=== PATIENT | female | born 1990 | race Caucasian/White ===

== ENCOUNTER 2022-02-28 12:03 | Outpatient (CLI) | payer BC, SELFPAY | END 2022-02-28 12:04 | disposition home or self-care (01) | LOC: US 12:03 | PROVIDERS: Visit Provider Pediatrics Neonatal-Perinatal Medicine | DX: Z34.92 Encounter for supervision of normal pregnancy, unspecified, second trimester (principal); Z3A.21 21 weeks gestation of pregnancy | CPT/HCPCS: 76811 ==

== ENCOUNTER 2022-04-20 08:34 | Outpatient (CLI) | payer BC, SELFPAY ==
[2022-04-22 09:59] LABS: Rapid Plasma Reagin (RPR) Non Reactive (Non Reactive)
== END 2022-04-20 08:35 | disposition home or self-care (01) ==
LOC: NFLDREF 08:35
PROVIDERS: Visit Provider Advanced Practice Midwife
DX: Z34.93 Encounter for supervision of normal pregnancy, unspecified, third trimester (principal); Z3A.28 28 weeks gestation of pregnancy
CPT/HCPCS: 86592

== ENCOUNTER 2022-05-18 07:57 | Outpatient (CLI) | payer BC, SELFPAY ==
--- NOTE | 2022-05-18 08:15 | CRLHL7_ITS ---
For Patients: As a result of the Century Cures Act, medical imaging exams and procedure reports are released immediately into your electronic medical record. You may view this report before your referring provider. If you have questions, please contact your health care provider. INDICATION: HX COVID IN , GROWTH COMPARISON: 12/08/2021 TECHNIQUE: Real time herrera scale imaging of the fetus was performed as well as color Doppler and spectral Doppler analysis of the umbilical artery. FINDINGS: Sonographic imaging demonstrates a single living intrauterine gestation. Fetus demonstrates a regular cardiac rate of 132 beats per minute. Fetus has a vertex position. The placenta lies anteriorly. Amniotic fluid volume appears normal and there is a single deepest vertical pocket: 6.3 cm. The estimated weight is 2113gm which lies at the 61st %. BPD 83rd percentile. HC 56th percentile. AC 77th percentile. FL 23rd percentile. The HC/AC ratio measures 1.04 range (0.96-1.11). IMPRESSION: Sonographic gestational age 33 weeks 2 days and sonographic due date of 07/04/2022. Sonographic age 6 days ahead of the clinical age. Estimated weight 61st percentile. Abdominal circumference 77th percentile. Dictated by Sreedhar Locke MD @ 05/18/2022 9:22:25 AM (Electronically Signed)
== END 2022-05-18 07:58 | disposition home or self-care (01) ==
LOC: US 07:58
PROVIDERS: Visit Provider Advanced Practice Midwife
DX: Z34.93 Encounter for supervision of normal pregnancy, unspecified, third trimester (principal); Z3A.32 32 weeks gestation of pregnancy
CPT/HCPCS: 76816

== ENCOUNTER 2022-06-15 10:19 | Outpatient (CLI) | payer BC, SELFPAY ==
[2022-06-16 14:43] LABS: Strep B DNA Probe POSITIVE (Negative)
[2022-06-16 16:00] LABS: Strep B Pen/Amox Allergy Yes
== END 2022-06-15 10:20 | disposition home or self-care (01) ==
LOC: NFLDREF 10:20
PROVIDERS: Visit Provider Advanced Practice Midwife
DX: Z34.83 Encounter for supervision of other normal pregnancy, third trimester (principal); Z3A.36 36 weeks gestation of pregnancy
CPT/HCPCS: 87081; 87185; 87653

== ENCOUNTER 2022-06-22 13:47 | Inpatient (IN) | payer BC, SELFPAY ==
[2022-06-22] VITALS (7 sets, daily range): BP systolic 107–121; BP diastolic 57–78; PULSE 71–101; RESP 16–20; TEMP 36.8–37.4; O2SAT 96–100; BMI 27.7
[2022-06-22 14:38] LABS: SARS PCR* Negative SARS-CoV-2 (Negative)
--- NOTE | 2022-06-22 15:14 | W.PM.LDBA ---
Subjective History of Present Illness Time Seen by Provider: 14:30 Date Seen: 06/22/22 Narrative: Kristen is being admitted to Labor and Delivery for IOL r/t cholystasis. She is a 32 year old at 37w 3d weeks gestation. Her full history and physical was dictated by Susan Lopez on 06/22/2022. Please see this for details. OB Problem List BLOOD TYPE: B Positive 1. Closely spaced 2. Husbands father and maternal uncle have history of cardiac defect, needed ventricular repair. FOB has no issues, never had echo Plan Level II in previous 3. Small thin ISHMAEL right of gestational sac on US 4. Headaches, with aura 5. COVID in 03/2022 Growth at 32 weeks: EFW 61% Growth at 36 weeks: declined 6. High anxiety over previous experience 7. GBS +, Allergy to Amoxicillin Susceptible to all. Flu: declines on 05/18/2022. Covid: Declines Tdap: Decline on 05/04/2022. U/S FAS - Level 2 03/21/22? IMPRESSION:? This is a normal scan that is consistent with dates.? There are no trisomy markers identified.? The measurements are above average but still within the normal range.? Specifically the heart showed normal four-chamber views as well as normal right and left outflow tracts.? Regular rate and rhythm was present throughout the scan.? Today's findings are very reassuring.? This patient's questions were answered.? Further scans would only be necessary if there is a change in the patient's clinical status.? OB - H&P: Exam Physical Exam: Vital signs: Temp Pulse Resp BP Pulse Ox 98.3 F 101 H 20 121/78 98 06/22/22 13:54 06/22/22 13:55 06/22/22 13:54 06/22/22 13:55 06/22/22 13:55 Constitutional: Constitutional: no acute distress Routine HEENT Exam: Head: Present normocephalic Eye: Present normal appearance Routine Neck Exam: Neck: Present full ROM Routine Respiratory Exam: Respiratory: Present CTA bilaterally Routine Cardiovascular Exam: Cardiovascular: RRR Routine Abdominal Exam: Comments: Gravid Routine Exam: External: Present normal external exam Perineum Description: Normal Detailed Labor and Delivery Exam: Patient Gravid: yes Dilation (cm): 0 Effacement (%): 0 Cervix position: posterior Consistency: medium Tachysystole: No Fetus (Single): Station: -4 Heart Rate Baseline: 135 Monitor Accelerations: Present Assistant Boys Track Coach Variability: Moderate (6-25) Routine Back/Spine/Pelvis Exam: Back/Spine: full ROM Routine Skin Exam: Present intact, dry and warm; Absent rash Routine Neurological Exam: Present alert and oriented X3 Detailed Neurological Exam: Coma Scale: Eye Opening: Spontaneous (4) Verbal Response: Orientated (5) Routine Psychiatric Exam: Present normal affect and normal thought process OB - Problem Based A/P Additional Plan (1) Supervision of other normal : Status: Acute (2) Cholestasis during in third trimester: Status: Acute Plan ASSESSMENT:? 32 at 37 3/7 weeks gestation? complicated by:?Cholestasis Labor type: Induced labor? Category 1 FHR pattern.?? Labor complicated by: GBS+? GBS positive? PLAN:? 1. Routine intrapartum cares as ordered. ? 2. Monitoring per policy, continuous d/t cholestasis 3. Planning unmedicated . Desires water . Consent signed. Hep C negative. Candidate for analgesia of choice.?? 4. Patient encouraged to reposition and ambulate to promote physiologic labor and .? 5. Induction per cytotec protocol 6. Anticipate progress to active labor and ? ? Delivery/Labor/Induction Plan Plan: induction Induction method: per misoprostol protocol
[2022-06-22] MEDS: miSOPROStoL 25 MCG/0.25 TABLET VAGINAL ×2 (16:59→21:12)
[2022-06-22 17:06] LABS: Basophils Percent Auto 0.2 % (0.0-3.0); Eosinophils Percent Auto 0.6 % (0.0-7.0); Hematocrit 37.1 % (33.0-51.0); Hemoglobin* 12.4 gm/dL (12.0-16.0); Immature Granulocytes Pct Auto 0.2 %; Lymphocytes Percent Auto 23.7 % (20-44); Mean Corpuscular HGB Conc 33 gm/dL (32-36); Mean Corpuscular Hemoglobin 31 pg (26-34); Mean Corpuscular Volume 92 fL (80-100); Monocytes Percent Auto 5.4 % (0.0-11.0); Neutrophils Percent Auto 69.9 % (42.0-72.0); Platelet Count* 237 K/uL (140-440); RDW Coefficient of Variation % 13.4 % (11.5-15.5); Red Blood Count 4.03 m/uL (4.00-5.20)
[2022-06-22 17:52] LABS: Slide Review Reflex No
--- NOTE | 2022-06-22 21:15 | PM.OBPNL ---
Subjective Time Seen by Provider: 21:15 Date Seen: 06/22/22 Narrative: Intrapartum Progress Note? Labor and Delivery? ? Subjective: Kristen is coping well with IOL, she stated she is not really feeling any pain/contractions. She is currently being supported by her . Understands the current plan of care. Questions answered to her satisfaction. Denies concerns. She would like to continue resting and to try to sleep now. SVE unchanged. Second dose of cervical cytotec placed. ? Objective Vital Signs: Last Vital Signs Temp 98.6 F 06/22/22 17:42 Pulse 78 06/22/22 19:18 Resp 18 06/22/22 17:42 BP 111/60 06/22/22 19:18 Pulse Ox 98 06/22/22 13:55 Pelvic Exam Dilation (cm): 0 Effacement (%): 0 Station: -4 Contractions Monitor mode: External Contraction Frequency: uterine irritability Contraction pattern: Irregular Contraction intensity: Mild Assessment Assessment: induction ongoing Station: -4 Heart Rate Baseline: 130 Survey Worker Variability: Moderate (6-25) Monitor Accelerations: Present Monitor Decelerations: None (one ) Plan Plan: ASSESSMENT:? 32 at 37 3/7 weeks gestation? complicated by:?Cholestasis Labor type: Induced labor, Cytotec x2 Category 1 FHR pattern.?? Labor complicated by: GBS+? GBS positive? PLAN:? 1. Routine intrapartum cares as ordered. ? 2. Monitoring per policy, continuous d/t cholestasis 3. Planning unmedicated . Desires water . Consent signed. Hep C negative. Candidate for analgesia of choice if desired.?? 4. Patient encouraged to reposition and ambulate to promote physiologic labor and .? 5. Induction per cytotec protocol 6. Anticipate progress to active labor and ?
[2022-06-23] VITALS (14 sets, daily range): BP systolic 100–119; BP diastolic 57–74; PULSE 70–103; RESP 14–16; TEMP 36.7–37.2; O2SAT 95–97
[2022-06-23] MEDS: miSOPROStoL 25 MCG/0.25 TABLET VAGINAL (01:20)
--- NOTE | 2022-06-23 02:13 | P.OBPN_ITS ---
Subjective Time Seen by Provider: 01:10 Date Seen: 06/23/22 Narrative: Intrapartum Progress Note? Labor and Delivery? ? Subjective: Kristen is coping well with induction, sleeping in bed, reports she is feeling a little more cramping and her pain is at about a 6 with cramps. She is currently being supported by her asleep on the sofa. Prefers to not be checked right now because it causes too much stress worrying about how the induction is moving along. Understands the current plan of care to continue with cytotec every 4 hours. Questions answered to her satisfaction. She would like to try and sleep but does not want any pain medication or sleep aids at this time. Objective Vital Signs: Last Vital Signs Temp 98.3 F 06/22/22 21:17 Pulse 78 06/23/22 01:08 Resp 16 06/22/22 21:17 BP 100/64 06/23/22 01:08 Pulse Ox 98 06/22/22 13:55 Contractions Monitor mode: External Contraction pattern: Irregular Contraction intensity: Mild Pitocin Rate (mU/min): 14 Assessment Assessment: induction ongoing Status: Category l Heart Rate Baseline: 150 Health Information Tech Variability: Moderate (6-25) Monitor Accelerations: Present Monitor Decelerations: None (one ) Plan Plan: ASSESSMENT:? 32 at 37 3/7 weeks gestation? complicated by:?Cholestasis Labor type: Induced labor, Cytotec x3 Category 1 FHR pattern.?? Labor complicated by: GBS+? GBS positive? PLAN:? 1. Routine intrapartum cares as ordered. ? 2. Monitoring per policy, continuous d/t cholestasis 3. Planning unmedicated . Desires water . Consent signed. Hep C negative. Candidate for analgesia of choice if desired.?? 4. Patient encouraged to reposition and ambulate to promote physiologic labor and .? 5. Induction per cytotec protocol 6. Anticipate progress to active labor and ?
[2022-06-23] MEDS: AMPICILLIN 2 GM in 0.9 % SODIUM CHLORIDE Mini-bag 100 ML IVPB (05:43)
--- NOTE | 2022-06-23 08:05 | P.OBPRC_ITS ---
Documented by User: Jessica Jiang CNM 06/23/22 20:08 Procedure Delivery date: 06/23/22 Procedure Done: Global Procedure Details: The patient is a 32 year-old admitted on 06/22/2022 at 37 Weeks, 3 Days gestation for IOL r/t Cholestasis.? Cervical exam on admission was 0 cm/0 % effaced/-4 station with membranes intact in vertex presentation.? No contractions noted.? heart rate demonstrated baseline 135 bpm with moderate variability, + accelerations, - decelerations; a category 1 tracing.? SROM occurred at 0519 on 06/23/22 with clear fluid. ? Labor Analgesia:? Pt tried nitrous oxide but did not wish to continue with it ? Pitocin:? no ? Labor onset:? 06/23/22 0519 with SROM ? Complete:? 0652 with spontaneous pushing ? Pushing:? 0652 ? heart tones during second stage were reassuring with a baseline of 145, , moderate variability, difficult to trace during pushes but demonstrated good return to baseline between contractions. ? Delivery note? Patient was admitted on 06/22/2022 from Clinic for IOL r/t Cholestasis and progressed normally with cytotec induction. Pt had considerable anxiety about the induction process based on her first experience. Significant time spent discussing options, answering pt questions, and giving reassurance before and during induction and labor. Pt recieved 3 doses of cytotec PV. SROM noted at 0519 on 06/23/22 with clear fluid, contractions became much more intense as labor progressed rapidly. Patient was complete and spontaneously pushing at 0652. of a viable male, Srini, at 0710 while on the stool. Pushing was well controlled and baby delivered gently into staff nurse midwife's poised hands. Vertex delivered OA. Nuchal cord x1 easily delivered through, no shoulder. Body delivered easily and without incident. passed to mothers abdomen, a vigorous cry produced with drying and stimulation. Cord was clamped and cut once pulsations stopped. APGARS were 7 at one minute and 9 at five minutes respectively. Mouth was bulb suctioned. Intact placenta with a 3 vessel cord delivered spontaneously at 0726. Fundus firm. Very small 1st degree perineal laceration identified, well approximated with good hemostats noted, not repaired. QBL 25 cc. Mother and baby stable; mother plans to breastfeed. weight pending.? ? Placenta delivered spontaneously and complete at 0726 with a 3 vessel cord. ? Mother and infant were stable after delivery. ? Lacerations:?1st degree perineal identified, not repaired, well approximated and good hemostats noted. ? Blood loss: 25 mL. Blood loss measurement type: QBL ? Sponge and needles counts are correct. Events: Labor Induction and Other (Cholestasis) Intrapartal Events: Labor Induction Induction method: per misoprostol protocol Delivery monitor: external FHT and external uterine Route of delivery: Laceration description: Perineal - 1st Degree (Unrepaired) Estimated blood loss (mL): 25 Anesthesia type: None [place] Infant Gender: Male presentation: vertex Placental Delivery Description: Spontaneous Cord Description: 3 Vessels total score - 1 minute: 7 total score - 5 minute: 9 OB Vag Delivery Procedures Additional Procedures ECV: No Cook Catheter Insertion: No NST: No D&C: No Laceration Repair: No Tubal Ligation : No Other: No Documented by User: Liana Lopez CNM 06/26/22 19:00 Procedure Procedure Details: The patient is a 32 year-old admitted on 06/22/2022 at 37 Weeks, 3 Days gestation for IOL r/t Cholestasis.? Cervical exam on admission was 0 cm/0 % effaced/-4 station with membranes intact in vertex presentation.? No contractions noted.? heart rate demonstrated baseline 135 bpm with moderate variability, + accelerations, - decelerations; a category 1 tracing.? SROM occurred at 0519 on 06/23/22 with clear fluid. ? Labor Analgesia:? Pt tried nitrous oxide but did not wish to continue with it ? Pitocin:? no ? Labor onset:? 06/23/22 05 with SROM ? Complete:? 0652 with spontaneous pushing ? Pushing:? 0652 ? heart tones during second stage were reassuring with a baseline of 145, , moderate variability, difficult to trace during pushes but demonstrated good return to baseline between contractions. ? Delivery note? Patient was admitted on 06/22/2022 from Clinic for IOL r/t Cholestasis and progressed normally with cytotec induction. Pt had considerable anxiety about the induction process based on her first experience. Significant time spent discussing options, answering pt questions, and giving reassurance before and during induction and labor. Pt recieved 3 doses of cytotec PV. SROM noted at 0519 on 06/23/22 with clear fluid, contractions became much more intense as labor progressed rapidly. Patient was complete and spontaneously pushing at 0652. of a viable male, Srini, at 0710 while on the stool. Pushing was well controlled and baby delivered gently into staff nurse midwife's poised hands. Vertex delivered OA. Nuchal cord x1 easily delivered through, no shoulder. Body delivered easily and without incident. Infant passed to mothers abdomen, a vigorous cry produced with drying and stimulation. Cord was clamped and cut once pulsations stopped. APGARS were 7 at one minute and 9 at five minutes respectively. Mouth was bulb suctioned. Intact placenta with a 3 vessel cord delivered spontaneously at 0726. Fundus firm. Very small 1st degree perineal laceration identified, well approximated with good hemostats noted, not repaired. QBL 25 cc. Mother and baby stable; mother plans to breastfeed. Infant weight pending.? ? Placenta delivered spontaneously and complete at 0726 with a 3 vessel cord. ? Mother and were stable after delivery. ? Lacerations:?1st degree perineal identified, not repaired, well approximated and good hemostats noted. ? Blood loss: 25 mL. Blood loss measurement type: QBL ? Sponge and needles counts are correct. LUIS Peterson present for supervision of delivery.
[2022-06-23] MEDS: DOCUSATE SODIUM 100 MG CAPSULE PO (08:30)
[2022-06-23] MEDS: IBUPROFEN 600 MG TABLET PO ×2 (08:30→14:27)
[2022-06-24] VITALS (7 sets, daily range): BP systolic 113–129; BP diastolic 75–87; PULSE 71–76; RESP 14–16; TEMP 36.6–37.1; O2SAT 97–98
--- NOTE | 2022-06-24 09:05 | P.DS_ITS ---
DS: Providers Provider Time Seen by Provider: 09:00 Date Seen: 06/24/22 Date of admission: 06/22/22 13:47 Primary care physician: Not a Local Provider Admitting Clinician: Jessica Jiang CNM Attending Physician on discharge: lissette Robles APRN, CNM Date of Discharge: 06/24/22 DS: Diagnosis Discharge Diagnosis (1) NVD (normal vaginal delivery): Status: Acute (2) Lactating mother: Status: Acute (3) Cholestasis during in third trimester: Status: Acute Exam Narrative: Exam Narrative: VSS, afebrile GENERAL APPEARANCE: ?normal affect, alert, no distress MOOD: ?appropriate HEENT: normocephalic, neck supple, full ROM CHEST: ?Symmetrical chest wall movement. ?Normal respiratory effort. ?Clear to auscultation HEART: ?regular rate and rhythm ABDOMEN: ?soft, non-tender. Uterine fundus is firm, at Umbilicus, Midline and is appropriate for the stage of recovery. ?Bowel sounds present. PERINEUM: ?mild edema of the perineum, there is a 1st degree laceration that is healing well. EXTREMITIES: ?normal and trace edema Const: Vital Signs, click to edit/add: Vital Signs - 24 hr 06/23/22 09:20 06/23/22 16:43 06/23/22 09:19 Temperature 98.6 F 98.9 F Pulse Rate 103 H Pulse Rate [Pulse Oximeter] 80 Respiratory Rate 16 Blood Pressure 116/63 Blood Pressure [Ri ght Arm] 113/74 Pulse Oximetry 97 Oxygen Delivery Me thod Room Air 06/23/22 20:07 06/23/22 23:34 06/24/22 03:57 Temperature 98.7 F 98.1 F Pulse Rate Pulse Rate [Pulse Oximeter] 76 70 Respiratory Rate 16 14 14 Blood Pressure Blood Pressure [Ri ght Arm] 116/71 116/74 Pulse Oximetry 95 96 Oxygen Delivery Me thod Room Air Room Air Room Air 06/24/22 04:59 06/24/22 07:54 Temperature 97.9 F 98.6 F Pulse Rate Pulse Rate [Pulse Oximeter] 72 71 Respiratory Rate 16 16 Blood Pressure Blood Pressure [Ri ght Arm] 113/75 125/87 Pulse Oximetry 97 97 Oxygen Delivery Me thod Room Air Room Air Documenting provider has reviewed patient's vital signs: yes OB - DS: Summary Hospital Course Hospital Course: The patient is a 32 year old G 2 now P 2 at 37.4 weeks gestation that was admitted to the Center on 06/22/22 for IOL for cholestasis. She had an uncomplicated vaginal delivery. She delivered a viable male infant. She is breast feeding, which she states is going well. the patient has done well. She is voiding w/o difficulty. She is ambulating and denies any dizziness. She is planning condoms and partner vasectomy for prevention. She was not adequately treated for GBS, so she will plan to stay until this evening for discharge. Peripartum Data Infant delivery method: Vaginal Laceration description: Perineal - 1st Degree complications: none [place] Infant Gender: Male Discharge Plan: Home Status at Discharge Functional status at discharge: independent ambulation Overall status at discharge: patient is progressing back to baseline Time Spent with Patient Time attestation: Total time spent providing and/or coordinating discharge services: Time spent: Less than 30 minutes Discharge Plan Discharge Disposition: Home, Self-Care Date of Admission: 06/22/22 13:47 Attending Provider on Discharge: Lissette Robles Primary Care Provider: Provider,Not a Local Condition: Stable Anticipated Discharge Date/Time: 06/24/22 19:30 Discharge Medications: New docusate sodium 100 mg Capsule 100 mg PO BID PRNQty: 100 0RF Rx Instructions: Take 1 cap 1-2 times a day as needed for constipation ibuprofen 600 mg Tablet 600 mg PO Q6H PRNQty: 60 0RF Continued DHA 200 mg capsule 200 mg PO .qd cholecalciferol (vitamin D3) 25 mcg (1,000 unit) tablet 1,000 unit PO DAILY valacyclovir 500 mg tablet 500 mg PO BID PRN magnesium 200 mg tablet 200 mg PO QDAY Discharge Orders: Discharge Order (Routine); Ordered 06/24/22 Ordered By: Lissette Robles Patient Education: OB Over the Counter Medication Information, OB Vaginal/Breast Feeding Additional Instructions: Follow up in 2 weeks and 6 weeks. Activity Level: Activity as Tolerated Discharge Diet: Regular Follow Up Appointments: Provider,Not a Local [Primary Care Provider] - Forms: [employer] Info Instructions
== END 2022-06-24 19:15 | disposition home or self-care (01) | DRG 560 ==
PROVIDERS: Admitting Provider Advanced Practice Midwife; Visit Provider Advanced Practice Midwife
DX: O26.62 Liver and biliary tract disorders in childbirth (principal); K83.1 Obstruction of bile duct; O99.824 Streptococcus B carrier state complicating childbirth; O70.0 First degree perineal laceration during delivery; Z86.16 Personal history of COVID-19; Z3A.37 37 weeks gestation of pregnancy; Z37.0 Single live birth
CPT/HCPCS: 36415; 59200; 82239; 84450; 84460; 85025; 86850; 86900; 86901; 87186; 87635; 88307; A9270; J0290

== ENCOUNTER 2022-06-28 09:13 | Emergency (ER) | payer BC, SELFPAY ==
[2022-06-28 09:18] VITALS: BP 126/89; PULSE 89; TEMP 36.6; O2SAT 99; BMI 25.1
--- NOTE | 2022-06-28 09:26 | ED.NURSE ---
Pt signed refusal after triage, pt satisfied that BP was normal when checked here. Did not want to see MD. Pt encouraged to monitor for symptoms of high BP and continue to monitor BP at home, and follow up with her current treatment plan. Pt informed she could always come back to ED for reevaluation.
== END 2022-06-28 09:28 | disposition left against medical advice (07) ==
DX: Z53.29 Procedure and treatment not carried out because of patient's decision for other reasons (principal)

== ENCOUNTER 2023-07-05 16:19 | Emergency (ER) | payer BC, SELFPAY ==
[2023-07-05 16:29] VITALS: BP 118/72; PULSE 86; RESP 16; TEMP 36.4; O2SAT 95; BMI 22.6
--- NOTE | 2023-07-05 16:37 | ED_ITS ---
HPI - General Adult General Time Seen by Provider: 16:38 Date Seen: 07/05/23 Chief complaint: Abdominal Pain Stated complaint: Ref by [id number] scan-elevated lipase Time Seen by Provider: 07/05/23 16:37 Source: patient, RN notes reviewed and old records reviewed Mode of arrival: ambulatory Limitations: no limitations History of Present Illness HPI narrative: Patient is a very pleasant 33-year-old female previously healthy who comes to the emergency room today from [facility] for a CT of the abdomen with concerns regarding pancreatitis. Patient notes that a week ago she began experiencing right upper quadrant pain that was very tender to the touch in she described as a 9/10 in severity. She also became ?itchy with this similar to when she had clearly stasis during . She has not had fever or chills. She did not have any vomiting. Today she notes her pain is 3/10 and when she went to the clinic she had an ultrasound which was reassuring but her lipase was high and was sent to the emergency room for CT with concerns regarding pancreatitis. Again, patient notes no fever or chills. Sometimes the pain does radiate into her back. She denies dysuria hematuria. Related Data Home Medications Medication Instructions Recorded Confirmed cholecalciferol (vitamin D3) 25 1,000 unit PO DAILY 02/28/22 03/28/23 mcg (1,000 unit) tablet valacyclovir 500 mg tablet 500 mg PO BID PRN 02/28/22 03/28/23 Allergies Allergy/AdvReac Type Severity Reaction Status Date / Time clavulanic acid Allergy Severe Hives Verified 03/28/23 14:07 [From Augmentin] latex Allergy Mild Hives/flush Verified 03/28/23 14:07 ing nitrofurantoin Allergy Mild Hives/flush Verified 03/28/23 14:07 ing Review of Systems Status of ROS: Reports: 10 or more systems reviewed and unremarkable except as noted in History and below Const: Denies: fever or chills PFSH PFSH Medical History NVD (normal vaginal delivery) ?O80 - Encounter for full-term uncomplicated delivery (ICD-10) Kidney stone ?N20.0 - Calculus of kidney (ICD-10) Surgical History History of third molar tooth extraction ?K08.409 - Partial loss of teeth, unspecified cause, unspecified class (ICD- 10) S/P ureteral stent placement ?Z96.0 - Presence of urogenital implants (ICD-10) Family History Paternal Grandfather High blood pressure Diabetes Maternal Grandfather High blood pressure Father High blood pressure Mother Breast cancer Maternal Grandmother Brain cancer Lung cancer Family/Other Autism Social History Narrative: SOCIAL Education: Associates Degree Work: Dental Hygienist Partner: Ovidio Lives with: Ovidio Raj Pets: Dog Abuse: Denies past/present Special Diet: Denies Ok with a blood transfusion: yes Culture or orthodoxy beliefs: Pentecostalism RISK [employer]ORS Exercise Times/wk: Yoga, Walking/Jogging 4x/week Depression/Anxiety: none GIA: 2 PHQ 9: 1 Seat Belt Use: Routinely Smoking: Denies past/present Alcohol/day: Denies while Caffeine: Coffee 1 cup/day Drug Use: Denies past/present Chicken Pox: Vaccinated MRSA: Denies Smoking Status: Never smoker Little interest or pleasure in doing things: not at all Feeling down, depressed, or hopeless: not at all Exam Narrative: Exam Narrative: Alert and oriented. Very pleasant and nontoxic in appearance. Oral cavity with moist mucous membranes. Heart with regular rate and rhythm and lungs are clear to auscultation. No CVA tenderness with percussion. Able to move around without difficulty no peritoneal signs. Moving all extremities. Const: Vital Signs, click to edit/add: Vital Signs - 24 hr 07/05/23 16:29 Temperature 97.6 F Pulse Rate [Pulse Oximeter] 86 Respiratory Rate 16 Blood Pressure [Ri ght Upper Arm] 118/72 Pulse Oximetry 95 Oxygen Delivery Me thod Room Air Documenting provider has reviewed patient's vital signs: yes Course Course ED Course: At this time given elevated lipase will proceed with CT of the abdomen. I would like to repeat some of labs as this was from outside facility. CBC, comprehensive, lipase, CRP pending. 1 L of normal saline as well. Vital Signs Vital signs: Initial Vital Signs Temperature 97.6 F 07/05/23 16:29 Temperature Source Temporal Artery Scan 07/05/23 16:29 Pulse Rate 86 07/05/23 16:29 Pulse Rhythm Regular 07/05/23 16:29 Respiratory Rate 16 07/05/23 16:29 Blood Pressure 118/72 07/05/23 16:29 Blood Pressure Mean 87 07/05/23 16:29 Blood Pressure Position Sitting 07/05/23 16:29 Pulse Oximetry 95 07/05/23 16:29 Oxygen Delivery Method Room Air 07/05/23 16:29 Vital Signs Temperature 97.6 F 07/05/23 16:29 Pulse Rate 86 07/05/23 16:29 Respiratory Rate 16 07/05/23 16:29 Blood Pressure 118/72 07/05/23 16:29 Pulse Oximetry 95 07/05/23 16:29 Oxygen Delivery Method Room Air 07/05/23 16:29 Temperature 97.6 F 07/05/23 16:29 Pulse Rate 86 07/05/23 16:29 Respiratory Rate 16 07/05/23 16:29 Blood Pressure 118/72 07/05/23 16:29 Pulse Oximetry 95 07/05/23 16:29 Oxygen Delivery Method Room Air 07/05/23 16:29 Medications Administered Medications: Discontinued Medications Generic Name Dose Route Start Last Admin Trade Name Freq PRN Reason Stop Dose Admin Sodium Chloride 1,000 mls @ 1,000 mls/hr 07/05/23 16:48 07/05/23 18:35 0.9 % Sodium Chloride 1000 Ml IV 07/05/23 17:47 Not Given .Q1H ISHMAEL Sodium Chloride 500 mls @ 500 mls/hr 07/05/23 18:28 07/05/23 19:02 0.9 % Sodium Chloride 500 Ml IV 07/05/23 19:27 Infused .Q1H ONE Infusion Medical Decision Making MDM Narrative Medical decision making narrative: 1. Abdominal pain-at this time are lipase, white count, CRP all within normal limits. LFTs also within normal limits. Suspected patient did have a gallstone last week that has now passed. I do not have an explanation for a normal lipase here an elevated lipase in the clinic. Given the fact that patient is much improved suggest symptomatic cares at this time. If she does not have complete resolution of her symptoms she will need to follow up with her primary MD. reassurance at this time. 2. Disposition-home. Return for fever, worsening pain, vomiting and as needed. Medical Records Medical records reviewed: Yes I reviewed the patient's medical records Medical records narrative: I was able to access patient's results from [facility]. Indeed, her ultrasound was negative for any abnormality. Lab Data Lab results reviewed: Yes I reviewed the patient's lab results Labs: Lab Results 07/05/23 Range/Units 17:00 WBC 9.39 (4.50-11.00) K/uL RBC 4.53 (4.00-5.20) m/uL Hgb 13.5 (12.0-16.0) gm/dL Hct 41.6 (33.0-51.0) % MCV 92 (80-100) fL MCH 30 (26-34) pg MCHC 33 (32-36) gm/dL RDW Coeff of Juancarlos 12.4 (11.5-15.5) % Plt Count 319 (140-440) K/uL Neut % (Auto) 63.7 (42.0-72.0) % Lymph % (Auto) 30.1 (20-44) % [place] % (Auto) 4.7 (0.0-11.0) % Eos % (Auto) 0.7 (0.0-7.0) % Baso % (Auto) 0.3 (0.0-3.0) % Neut # (Auto) 5.97 (1.7-7.0) K/uL Lymph # (Auto) 2.83 (0.90-2.90) K/uL [place] # (Auto) 0.40 (0.00-0.90) K/UL Eos # (Auto) 0.07 (0.00-0.50) K/uL Baso # (Auto) 0.03 (0.00-0.30) K/uL Abs Immat Gran (auto) 0.05 (0.00-0.30) K/uL Imm/Tot Granulo (auto) 0.5 % Sodium 138 (135-149) mmol/L Potassium 4.0 (3.6-5.1) mmol/L Chloride 104 (96-114) mmol/L Carbon Dioxide 25 (20-32) mmol/L Anion Gap 9 (7-15) mEq/L BUN 14 (5-24) mg/dL Creatinine 0.6 (0.5-1.5) mg/dL Estimated Creat Clear 124.85 Estimated GFR 121 ml/min Glucose 87 (60-115) mg/dL Calcium 9.8 (8.4-10.6) mg/dL Total Bilirubin 0.4 (0.1-1.5) mg/dL AST 21 (12-35) U/L ALT 18 (4-35) U/L Alkaline Phosphatase 79 (40-150) U/L C-Reactive Protein 0.6 (0.5-1.0) mg/dL Total Protein 8.5 H (6.0-8.3) g/dL Albumin 5.2 H (3.3-5.0) g/dL Lipase 194 (23-300) U/L Imaging Data CT scan - abdomen: Attestation: I have reviewed the pertinent imaging results. Radiologist's impression: Lung bases: Normal. Liver: Normal. No masses. Normal vasculature. Gallbladder and biliary tree: Normal gallbladder. No biliary duct dilation. Pancreas: Normal. Spleen: Normal. Normal size. Adrenal glands: Normal. No nodules. Kidneys and bladder: Normal size and position. No cyst or mass. No calculi. No urinary tract dilation. The urinary bladder is normal. GI: Normal. No dilated segments. No abnormal bowel wall thickening or hyperenhancement. Small stool burden. The appendix is normal. Vessels: Aorta and major branches, including the mesenteric vessels: Patent. Normal caliber. No atherosclerotic plaques. IVC and tributaries: Normal. Mesenteric and portal veins: Normal. Peritoneum: No free fluid. Lymph nodes: No adenopathy. Pelvis: Physiologic appearance of the reproductive organs. Bones: No fractures. No focal bone lesions. Normal for age. Abdominal wall: Normal. IMPRESSION: Normal CT of the abdomen and pelvis. Outside abdominal ultrasound: Attestation: I have reviewed the pertinent imaging results. My impression: I am unable to view the actual images but was able to find results in epic Radiologist's impression: GALLBLADDER: Normal. No gallstones, wall thickening, or pericholecystic fluid. Negative sonographic Marinelli's sign. ? BILE DUCTS: No biliary dilatation. The common duct measures 3 mm. ? LIVER: Normal parenchyma with smooth contour. No focal mass. ? RIGHT KIDNEY: No hydronephrosis. ? PANCREAS: The visualized portions are normal. ? No ascites. ? IMPRESSION: 1. Normal limited abdominal ultrasound. Discharge Plan Discharge Clinical Impression: Abdominal pain Qualifiers: Abdominal location: right upper quadrant Qualified Code(s): R10.11 - Right upper quadrant pain Patient Disposition: Home, Self-Care Condition: Improved Additional Instructions: Recommend avoiding fatty foods for now. Recommend follow-up in your clinic next week if you are still experiencing any symptoms. You should have gradual resolution of your symptoms. Ibuprofen may be used for discomfort. I was able to review the results of your abdominal ultrasound and you were correct in that there were no abnormalities. A CT today she is within normal limits as well. Return to the emergency room if you experience fever, vomiting, worsening pain and as needed Prescriptions: No Action cholecalciferol (vitamin D3) 25 mcg (1,000 unit) tablet 1,000 unit PO DAILY valacyclovir 500 mg tablet 500 mg PO BID PRN Follow Up/Referrals: Provider,Not a Local [Primary Care Provider] - Stand Alone Forms: [facility] Info Instructions
--- NOTE | 2023-07-05 16:47 | CRLHL7_ITS ---
For Patients: As a result of the Century Cures Act, medical imaging exams and procedure reports are released immediately into your electronic medical record. You may view this report before your referring provider. If you have questions, please contact your health care provider. INDICATION: Elevated lipase COMPARISON: None. TECHNIQUE: CT of the abdomen and pelvis after the administration of intravenous contrast. Multiplanar axial, coronal, and sagittal reformats were reconstructed. Contrast: 69 mL Isovue 370 intravenously. Oral contrast was not administered. FINDINGS: Lung bases: Normal. Liver: Normal. No masses. Normal vasculature. Gallbladder and biliary tree: Normal gallbladder. No biliary duct dilation. Pancreas: Normal. Spleen: Normal. Normal size. Adrenal glands: Normal. No nodules. Kidneys and bladder: Normal size and position. No cyst or mass. No calculi. No urinary tract dilation. The urinary bladder is normal. GI: Normal. No dilated segments. No abnormal bowel wall thickening or hyperenhancement. Small stool burden. The appendix is normal. Vessels: Aorta and major branches, including the mesenteric vessels: Patent. Normal caliber. No atherosclerotic plaques. IVC and tributaries: Normal. Mesenteric and portal veins: Normal. Peritoneum: No free fluid. Lymph nodes: No adenopathy. Pelvis: Physiologic appearance of the reproductive organs. Bones: No fractures. No focal bone lesions. Normal for age. Abdominal wall: Normal. IMPRESSION: Normal CT of the abdomen and pelvis. Please note that all CT scans at this facility use dose modulation, iterative reconstruction, and/or weight-based dosing when appropriate to reduce radiation dose to as low as reasonably achievable. Dictated by Liana Crouch MD @ 07/05/2023 6:15:13 PM (Electronically Signed)
[2023-07-05 17:22] LABS: Basophils Absolute Auto 0.03 K/uL (0.00-0.30); Basophils Percent Auto 0.3 % (0.0-3.0); Eosinophils Absolute Auto 0.07 K/uL (0.00-0.50); Eosinophils Percent Auto 0.7 % (0.0-7.0); Hematocrit 41.6 % (33.0-51.0); Hemoglobin* 13.5 gm/dL (12.0-16.0); Immature Granulocytes Abs Auto 0.05 K/uL (0.00-0.30); Immature Granulocytes Pct Auto 0.5 %; Lymphocytes Absolute Auto 2.83 K/uL (0.90-2.90); Lymphocytes Percent Auto 30.1 % (20-44); Mean Corpuscular HGB Conc 33 gm/dL (32-36); Mean Corpuscular Hemoglobin 30 pg (26-34); Mean Corpuscular Volume 92 fL (80-100); Monocytes Percent Auto 4.7 % (0.0-11.0); Neutrophils Absolute Auto 5.97 K/uL (1.7-7.0); Neutrophils Percent Auto 63.7 % (42.0-72.0); Platelet Count* 319 K/uL (140-440); RDW Coefficient of Variation % 12.4 % (11.5-15.5); Red Blood Count 4.53 m/uL (4.00-5.20); White Blood Count* 9.39 K/uL (4.50-11.00)
[2023-07-05 17:27] LABS: Slide Review Reflex No
[2023-07-05 17:44] LABS: Albumin* 5.2 g/dL (3.3-5.0); Chloride* 104 mmol/L (96-114); Sodium* 138 mmol/L (135-149)
[2023-07-05 17:47] LABS: Alkaline Phosphatase* 79 U/L (40-150); Anion Gap 9 mEq/L (7-15); Aspartate Amino Transferase* 21 U/L (12-35); Bilirubin Total* 0.4 mg/dL (0.1-1.5); Carbon Dioxide* 25 mmol/L (20-32); Creatinine* 0.6 mg/dL (0.5-1.5); Est. Creatinine Clearance* 124.85; Estimated Glomerular Filt Rate 121 ml/min; Lipase* 194 U/L (23-300); Total Protein* 8.5 g/dL (6.0-8.3)
[2023-07-05 17:48] LABS: Alanine Aminotransferase* 18 U/L (4-35); Blood Urea Nitrogen* 14 mg/dL (5-24); Calcium* 9.8 mg/dL (8.4-10.6); Glucose* 87 mg/dL (60-115)
[2023-07-05 17:50] LABS: C Reactive Protein* 0.6 mg/dL (0.5-1.0)
[2023-07-05] MEDS: 0.9 % SODIUM CHLORIDE 500 ML 500 ML IV (18:34)
== END 2023-07-05 19:14 | disposition home or self-care (01) ==
PROVIDERS: Emergency Provider Family Medicine
DX: R10.11 Right upper quadrant pain (principal)
CPT/HCPCS: 36415; 74177; 80053; 83690; 85025; 86140; 99284; J7120; Q9967